=== PATIENT | male | born 1970 | race Two or more races ===

== ENCOUNTER 2020-07-17 15:04 | Emergency (ER) | payer SELFPAY ==
[2020-07-17] MEDS ORDERED: Aspirin 325 MG Tab PO ONE (15:37)
[2020-07-17 15:59] LABS: BLOOD UREA NITROGEN,BUN 13 mg/dL (7.0-18.0); CARBON DIOXIDE,CO2 23.4 mmol/L (21.0-32.0); CHLORIDE,CL 104 mmol/L (98-107); GLUCOSE RANDOM 95 mg/dL (74-106); POTASSIUM,K 3.9 mmol/L (3.5-5.1); SODIUM,NA 141 mmol/L (136-148)
--- NOTE | 2020-07-17 16:16 | CR ---
INDICATION: Chest pain, shortness of breath, fatigue TECHNIQUE: Portable upright AP view of the chest COMPARISON: None FINDINGS: The lungs are clear. There is no sizable pleural effusion or pneumothorax. The cardiomediastinal silhouette is normal. The visualized osseous structures are unremarkable. IMPRESSION: No acute intrathoracic process. Dictated by Buffy Kam MD @ Jul 17 2020 4:14PM Signed by Dr. Buffy Kam @ Jul 17 2020 4:15PM
[2020-07-17] MEDS ORDERED: Ketorolac 30 MG/ML SDV IVPUSH ONE (16:18)
--- NOTE | 2020-07-17 17:08 | EDM.PDOC ---
ED HPI GENERAL MEDICAL PROBLEM - General Chief Complaint: Chest Pain Stated Complaint: CHEST PAIN Time Seen by Provider: 07/17/20 15:21 - History of Present Illness INITIAL COMMENTS - FREE TEXT/NARRATIVE: CHIEF COMPLAINT(S): Chest pain HISTORY OF PRESENT ILLNESS: This is a 50-year-old man without any past medical history who comes to the emergency department with a chief complaint of chest pain. The patient states that for the last 8 days he has been experiencing intermittent chest pain located in the center of her chest. He states that it happens randomly. He describes the pain as pressure rated 5 out of 10. He kingsley es any diaphoresis, nausea, or vomiting. He states that it resolves on its own. He states he does have some exertional dyspnea but denies any orthopnea. He also states that he has been experiencing a cough which is nonproductive and chills. He states that he took DayQuil and took a bath and that seemed to help however it is returned. He denies any personal history of CAD or family history of early onset CAD. He denies any other symptoms. REVIEW OF SYSTEMS: Constitutional: Positive for chills. Denies fever Eyes: Denies eye pain Ears, Nose, Mouth, & Throat: Denies earache Cardiovascular: Positive for chest pain Respiratory: Positive for shortness of breath and nonproductive cough Gastrointestinal: Denies Nausea, vomiting, diarrhea, hematochezia. Genitourinary: Denies hematuria Skin:Denies a rash Neurological: Denies blurred vision Psychiatric: Denies depression PAST MEDICAL HISTORY: As per history of present illness and as reviewed below otherwise noncontributory. SURGICAL HISTORY: As per history of present illness and as reviewed below otherwise noncontributory. SOCIAL HISTORY: Denies tobacco, alcohol, or illicit substances. FAMILY HISTORY: As per history of present illness and as reviewed below otherwise noncontributory. EXAMINATION OF ORGAN SYSTEMS/BODY AREAS: Constitutional: Blood pressure is 165/66, heart rate 74, respiratory rate 18 with an oxygen saturation 96% on room air. Temperature 36.1 General: Overall well-appearing man who is in no acute distress. Psychiatric: Appropriate mood and affect. Eyes: No scleral icterus or conjunctival erythema ENMT: Moist mucous membranes. No pharyngeal erythema Cardiovascular: Regular, rate, and rythym. No gallops, murmurs, or rubs. Bilateral upper extremity pulses symmetric and intact. No peripheral edema. No JVD. Respiratory: Lungs clear to auscultation bilaterally. No wheezes, rales, or rhonchi. Gastrointestinal: Soft, non-tender, non-distended. Normoactive bowel sounds Genitourinary: No suprapubic tenderness Musculoskeletal: Normal range of motion. Skin: No lesions or abrasions. Neurological: Alert, GCS 15 MEDICAL DECISION MAKING AND COURSE IN THE ED WITH INTERPRETATION/REVIEW OF DIAG NOSTIC STUDIES: This is a 50-year-old Japanese-speaking man without any past medical history who comes to the emergency department with a 8 days of central chest pain which is atypical associated with shortness of breath and nonproductive cough. At this time given the patient's age we will undergo a cardiac work-up. We will provide the patient with aspirin and Toradol for pain relief. Will obtain labs including CBC, CMP, troponin. We will also obtain a coronavirus swab as he is having some typical symptoms of coronavirus. We will reevaluate the patient for improvement. EKG was obtained which did not reveal any acute signs of ischemia. Twelve-lead EKG interpreted by myself. Normal sinus rhythm at a rate of 69beats per minute. Normal axis. TX interval is 183ms. QRS duration is 108ms. ST segments are normal without elevations or depressions. No Q waves present. Hypertrophy not noted. There is a T wave inversion in lead III. Interpretation: Normal sinus rhythm with nonspecific T wave inversion Wells Criteria Clinical signs/symptoms of DVT: No (0) PE #1 Dx or equally likely: No (0) Heart Rate >100: No (0) Immobilization for 3 days or surgery in last month: No (0) Previously Dx PE or DVT: No (0) Hemoptysis: No (0) Malignancy w/ Tx within 6 months or palliative: No (0) Wells Score: 0 Laboratory: CBC is unremarkable. CMP is unremarkable. Coronavirus is positive. Troponin is negative The radiological images were viewed by myself along with reading the report from the radiologist. Chest x-ray does not reveal any acute cardiopulmonary process. After labs and imaging I did discuss results with the patient. I discussed the importance of self-isolation for the next 10 days. I discussed the use of Tylenol and Motrin for pain relief. He is to return to the emergency department for any new or worsening symptoms. He did express understanding was amenable to discharge at this time. DISPOSITION: The patient was discharged home in stable condition. The patient will follow up with primary care clinic in 2 to 3 days CONDITION: Fair PROCEDURES: None FINAL IMPRESSION(S)/DIAGNOSES: 1. Acute coronavirus infection Mike Chen M.D. Chest Pain Score (Numeric/FACES): 8 - Related Data Allergies Allergy/AdvReac Type Severity Reaction Status Date / Time No Known Allergies Allergy Verified 07/17/20 15:19 Home Meds: Home Meds Acetaminophen [Tylenol Extra Strength] 500 mg PO Q6H #28 tab 07/17/20 [Rx] Ibuprofen [Ibu] 400 mg PO Q6HR #28 tablet 07/17/20 [Rx] Past Medical History - Past Health History Medical/Surgical History: Denies Medical/Surgical History Social & Family History - Family History Family Medical History: No Pertinent Family History - Tobacco Use Tobacco Use Status *Q: Never Tobacco User - Caffeine Use Caffeine Use: Reports: None - Recreational Drug Use Recreational Drug Use: No ED ROS GENERAL - Review of Systems Review Of Systems: See Below ED EXAM, GENERAL - Physical Exam Exam: See Below Course - Vital Signs Last Recorded V/S: Last Vital Signs Temp 36.6 C 07/17/20 17:53 Pulse 68 07/17/20 17:53 Resp 18 07/17/20 15:05 BP 133/58 L 07/17/20 17:53 Pulse Ox 95 07/17/20 17:53 - Orders/Labs/Meds Orders: Active Orders 24 hr Category Date Time Status CORONAVIRUS COVID-19 PCR PHL Stat Lab 07/17/20 16:26 Received Labs: Laboratory Tests 07/17/20 07/17/20 07/17/20 Range/Units 15:05 15:05 16:26 WBC 6.13 (4.0-11.0) K/uL RBC 5.33 (4.50-5.90) M/uL Hgb 15.3 (13.0-17.0) g/dL Hct 44.7 (38.0-50.0) % MCV 83.9 (80.0-98.0) fL MCH 28.7 (27.0-32.0) pg MCHC 34.2 (31.0-37.0) g/dL RDW Std Deviation 38.7 (28.0-62.0) fl RDW Coeff of L[place] 13 (11.0-15.0) % Plt Count 203 (150-400) K/uL MPV 11.10 (7.40-12.00) fL Neut % (Auto) 63.6 (48.0-80.0) % Lymph % (Auto) 27.9 (16.0-40.0) % [place] % (Auto) 7.5 (0.0-15.0) % Eos % (Auto) 0.7 (0.0-7.0) % Baso % (Auto) 0.3 (0.0-1.5) % Neut # (Auto) 3.9 (1.4-5.7) K/uL Lymph # (Auto) 1.7 (0.6-2.4) K/uL [place] # (Auto) 0.5 (0.0-0.8) K/uL Eos # (Auto) 0.0 (0.0-0.7) K/uL Baso # (Auto) 0.0 (0.0-0.1) K/uL Nucleated RBC % 0.0 /100WBC Nucleated RBCs # 0 K/uL Sodium 141 (136-148) mmol/L Potassium 3.9 (3.5-5.1) mmol/L Chloride 104 (98-107) mmol/L Carbon Dioxide 23.4 (21.0-32.0) mmol/L BUN 13 (7.0-18.0) mg/dL Creatinine 0.9 (0.8-1.3) mg/dL Est Cr Clr Drug Dosing 89.54 mL/min Estimated GFR (MDRD) > 60.0 ml/min Glucose 95 (74-106) mg/dL Calcium 8.6 (8.5-10.1) mg/dL Magnesium 1.9 (1.8-2.4) mg/dL Total Bilirubin 0.3 (0.2-1.0) mg/dL AST 61 H (15-37) IU/L ALT 48 (14-63) IU/L Alkaline Phosphatase 113 (46-116) U/L Troponin I < 0.050 (0.000-0.056) ng/mL Total Protein 8.3 H (6.4-8.2) g/dL Albumin 3.6 (3.4-5.0) g/dL Globulin 4.7 H (2.6-4.0) g/dL Albumin/Globulin Ratio 0.8 L (0.9-1.6) SARS CoV-2 RNA Rapid DAVIS POSITIVE H (NEGATIVE) Meds: Medications Discontinued Medications Generic Name Dose Route Start Last Admin Trade Name Jacky PRN Reason Stop Dose Admin Aspirin 325 mg 07/17/20 15:37 07/17/20 16:13 Aspirin PO 07/17/20 15:38 325 mg ONETIME ONE Administration Ketorolac Tromethamine 15 mg 07/17/20 16:18 07/17/20 17:13 Toradol IVPUSH 07/17/20 16:19 15 mg ONETIME ONE Administration Departure - Departure Time of Disposition: 17:32 Disposition: Home, Self-Care 01 Condition: Fair Clinical Impression: COVID-19 - Discharge Information *PRESCRIPTION DRUG MONITORING PROGRAM REVIEWED*: No *COPY OF PRESCRIPTION DRUG MONITORING REPORT IN PATIENT AL: No Prescriptions: Ibuprofen [Ibu] 400 mg PO Q6HR #28 tablet Acetaminophen [Tylenol Extra Strength] 500 mg PO Q6H #28 tab Instructions: COVID-19 Frequently Asked Questions, COVID-19: How to Protect Yourself and Others - [facility] Forms: ED Department Discharge Additional Instructions: The patient is informed of any results of their evaluation and diagnostic workup and all questions are answered. They are given discharge instructions and return precautions. The patient is stable for discharge. The patient states they understand and agree with the plan and that they will return if their symptoms get worse or if they have any new concerns. The following information is given to patients seen in the emergency department who are being discharged to home. This information is to outline your options for follow-up care. We provide all patients seen in our emergency department with a follow-up referral. The need for follow-up, as well as the timing and circumstances, are variable depending upon the specifics of your emergency department visit. If you don't have a primary care physician on staff, we will provide you with a referral. We always advise you to contact your personal physician following an emergency department visit to inform them of the circumstance of the visit and for follow-up with them and/or the need for any referrals to a consulting specialist. The emergency department will also refer you to a specialist when appropriate. This referral assures that you have the opportunity for follow-up care with a specialist. All of these measure are taken in an effort to provide you with optimal care, which includes your follow-up. Under all circumstances we always encourage you to contact your private physician who remains a resource for coordinating your care. When calling for follow-up care, please make the office aware that this follow-up is from your recent emergency room visit. If for any reason you are refused follow-up, please contact the [facility] Emergency Department at and asked to speak to the emergency department charge nurse. Noonan sido evaluado de forma emergente. Le cardenas diagnosticado coronavirus. [place] tylenol e ibuprofeno para el dolor y la fiebre. Asle por s mismo oliver 10 mccray. Regrese a la anderson de emergencias si empeora la dificultad para respirar, dolor en el pecho. Shelia un seguimiento con el mdico de atencin primaria que se indica a continuacin. [facility] - Primary Care [address] [place] [id number] [place] [address] Sepsis Event Note (ED) - Evaluation Sepsis Screening Result: No Definite Risk - Focused Exam Vital Signs: Vital Signs Temp Pulse Resp BP Pulse Ox 07/17/20 17:53 36.6 C 68 133/58 L 95 07/17/20 17:07 70 127/61 95 07/17/20 16:37 71 143/67 H 95 07/17/20 15:52 73 140/55 L 95 07/17/20 15:05 36.1 C 74 18 165/66 H 96 - My Orders Last 24 Hours: My Active Orders 07/17/20 16:26 CORONAVIRUS COVID-19 PCR PHL Stat - Assessment/Plan Last 24 Hours: My Active Orders 07/17/20 16:26 CORONAVIRUS COVID-19 PCR PHL Stat
== END 2020-07-17 17:53 | disposition home or self-care (01) ==
LOC: MW.ED 15:04
DX: U07.1 COVID-19 (principal)
CPT/HCPCS: 36415; 71045; 80053; 83735; 84484; 85025; 87635; 93005; 96374; 99285; A9270; J1885; 93010; 99283; U0002

== ENCOUNTER 2021-06-02 07:49 | Emergency (ER) | payer SELFPAY ==
--- NOTE | 2021-06-02 08:13 | PCM.EKG ---
#1 Interpretation EKG Date: 06/02/21 Time: 08:03 Rhythm: NSR Rate (Beats/Min): 98 [place]: Normal P-Wave: Present QRS: Normal ST-T: Normal QT: Normal Comparison: No Change (07/17/20) EKG Interpretation Comments: Sinus Rhythm
[2021-06-02 08:57] LABS: BLOOD UREA NITROGEN,BUN 12 mg/dL (7.0-18.0); CARBON DIOXIDE,CO2 27.7 mmol/L (21.0-32.0); CHLORIDE,CL 102 mmol/L (98-107); GLUCOSE RANDOM 213 mg/dL (74-106); POTASSIUM,K 3.6 mmol/L (3.5-5.1); SODIUM,NA 139 mmol/L (136-148)
--- NOTE | 2021-06-02 09:02 | CR ---
INDICATION: Cough and chest pain. TECHNIQUE: Chest 1 views. COMPARISON: 07/17/2020. FINDINGS: Cardiovascular and mediastinum: Cardiomegaly with particular enlargement of the left heart. Pulmonary vasculature is normal. Lungs and pleural spaces: Lungs are clear. No sign of infiltrate or mass. No sign of pleural effusion. No pneumothorax. Bones and soft tissues: No significant findings. IMPRESSION: Stable cardiomegaly without further evidence of heart failure or other acute abnormality. Dictated by Zion Bourgeois MD @ 06/02/2021 9:02:14 AM (Electronically Signed)
[2021-06-02] MEDS ORDERED: Aspirin 81 MG Tab.Chew PO ONE (09:13)
--- NOTE | 2021-06-02 09:14 | EDM.PDOC ---
ED HPI GENERAL MEDICAL PROBLEM - General Chief Complaint: Chest Pain Stated Complaint: VOMITTING, CHEST PAIN Time Seen by Provider: 06/02/21 08:00 - History of Present Illness INITIAL COMMENTS - FREE TEXT/NARRATIVE: CHIEF COMPLAINT(S): Chest pain HISTORY OF PRESENT ILLNESS: This is a 50-year-old man without any reported past medical history who comes to the emergency department with a chief complaint of chest pain. The patient states that he has been experiencing intermittent chest pain located on the left side of his chest which he describes as pressure-like. He denies any actual pain. He denies any exertional pressure or pain. He states that it mainly happens when he is sleeping at night. He denies any recent travel, recent surgery or prior history of DVT or PE. He states that he did have Covid in September but has been vaccinated since that time. He states that this does feel similar to that time. He denies any sore throat, runny nose, congestion, abdominal pain but states that he does have a cough which is productive of clear sputum. He denies any other symptoms. REVIEW OF SYSTEMS: Constitutional: Denies fever, chills. Eyes: Denies eye pain Ears, Nose, Mouth, & Throat: Denies earache Cardiovascular: Positive for chest pressure. Denies syncope, exertional chest pain, lower extremity edema Respiratory: Positive for productive cough. Denies shortness of breath, orthopnea Gastrointestinal: Denies Nausea, vomiting, diarrhea, hematochezia. Genitourinary: Denies hematuria Skin:Denies a rash MSK: Denies joint pain Neurological: Denies blurred vision Psychiatric: Denies depression PAST MEDICAL HISTORY: As per history of present illness and as reviewed below otherwise noncontributory. SURGICAL HISTORY: As per history of present illness and as reviewed below otherwise noncontributory. SOCIAL HISTORY: As per history of present illness and as reviewed below otherwise noncontributory. FAMILY HISTORY: As per history of present illness and as reviewed below otherwise noncontributory. EXAMINATION OF ORGAN SYSTEMS/BODY AREAS: Constitutional: Blood pressure 154/79, heart rate 100, respiratory rate 16 with an oxygen saturation of 96% on room air. Temperature 35.9 temporally. General: Well-appearing man who is in no acute distress Psychiatric: Appropriate mood and affect. Eyes: No scleral icterus or conjunctival erythema ENMT: Moist mucous membranes. No pharyngeal erythema Cardiovascular: Regular, rate, and rhythm. No gallops, murmurs, or rubs. Bilateral upper extremity pulses symmetric and intact. No peripheral edema. No JVD. Respiratory: Lungs clear to auscultation bilaterally. No wheezes, rales, or rhonchi. Gastrointestinal: Soft, non-tender, non-distended. Normoactive bowel sounds Genitourinary: No suprapubic tenderness Musculoskeletal: Normal range of motion. Skin: No lesions or abrasions. Neurological: Alert, GCS 15 MEDICAL DECISION MAKING AND COURSE IN THE ED WITH INTERPRETATION/REVIEW OF DIAGNOSTIC STUDIES: This is a 50-year-old and without any significant past medical history who comes to the emergency department with acute intermittent chest pressure associated with productive cough. The patient has no overt signs of edema on examination is lying comfortably in the stretcher. Differential at this time includes ACS, pneumonia, pulmonary embolism. Will obtain a cardiac work-up. EKG was obtained which did not reveal any acute signs of ischemia. Patient was placed on cardiac monitoring and pulse oximetry. radiation monitor at this time did reveal sinus rhythm and pulse oximetry with good waveform was 96% on room air. Patient is tachycardic therefore we will obtain a CT angiogram of the chest to evaluate for pulmonary embolism. We will provide the patient with 324 mg of p.o. aspirin. Will obtain Covid and influenza swabs. Heart Score History: Slightly or Non-Suspicious (0) ECG: Normal (0) Age: 45-64 (1) Risk Factors: No known risk factors (0) Initial Troponin: </= normal limit (0) Total Score:1 Laboratory: CBC is unremarkable. BMP is unremarkable. Glucose is elevated at 213. Calcium is normal. Magnesium is normal. Troponin is negative. Covid is negative. The radiological images were viewed by myself along with reading the report from the radiologist. Chest x-ray does not reveal any acute cardiopulmonary process other than stable cardiomegaly. CT angiogram of the chest does not reveal any evidence of acute pulmonary embolism. Reevaluation the patient reported symptomatic improvement. At this time I recommended famotidine nightly and to follow-up with primary care physician to reevaluate the need for possible outpatient cardiac work-up. He was given strict return precautions. The patient was amenable to discharge and had no further questions DISPOSITION: The patient was discharged home in stable condition. The patient will follow up with primary care physician in 3 to 5 days CONDITION: Fair PROCEDURES: Cardiac monitoring interpretation, pulse oximetry interpretation FINAL IMPRESSION(S)/DIAGNOSES: 1. Acute chest pain Mike Chen M.D. Chest Pain Score (Numeric/FACES): 4 - Related Data Allergies Allergy/AdvReac Type Severity Reaction Status Date / Time No Known Allergies Allergy Verified 06/02/21 08:28 Home Meds: Home Meds Acetaminophen [Tylenol Extra Strength] 500 mg PO Q6H #28 tab 07/17/20 [Rx] Ibuprofen [Ibu] 400 mg PO Q6HR #28 tablet 07/17/20 [Rx] Famotidine 40 mg PO DAILY #14 tablet 06/02/21 [Rx] Past Medical History - Past Health History Medical/Surgical History: Denies Medical/Surgical History - Infectious Disease History Infectious Disease History: Reports: Chicken Pox, Novel Coronavirus Social & Family History - Family History Family Medical History: No Pertinent Family History - Tobacco Use Tobacco Use Status *Q: Never Tobacco User Second Hand Smoke Exposure: No - Caffeine Use Caffeine Use: Reports: Coffee - Recreational Drug Use Recreational Drug Use: No ED ROS GENERAL - Review of Systems Review Of Systems: See Below ED EXAM, GENERAL - Physical Exam Exam: See Below Course - Vital Signs Last Recorded V/S: Last Vital Signs Temp 35.9 C L 06/02/21 08:07 Pulse 88 06/02/21 11:23 Resp 16 06/02/21 11:23 BP 132/66 06/02/21 11:23 Pulse Ox 95 06/02/21 11:23 - Orders/Labs/Meds Labs: Laboratory Tests 06/02/21 06/02/21 06/02/21 Range/Units 08:15 08:17 08:18 WBC 8.39 (4.0-11.0) K/uL RBC 5.43 (4.50-5.90) M/uL Hgb 15.4 (13.0-17.0) g/dL Hct 44.4 (38.0-50.0) % MCV 81.8 (80.0-98.0) fL MCH 28.4 (27.0-32.0) pg MCHC 34.7 (31.0-37.0) g/dL RDW Std Deviation 38.2 (28.0-62.0) fl RDW Coeff of Lokesh 13 (11.0-15.0) % Plt Count 149 L (150-400) K/uL MPV 12.00 (7.40-12.00) fL Neut % (Auto) 55.4 (48.0-80.0) % Lymph % (Auto) 37.7 (16.0-40.0) % Mcdonough % (Auto) 5.7 (0.0-15.0) % Eos % (Auto) 1.0 (0.0-7.0) % Baso % (Auto) 0.2 (0.0-1.5) % Neut # (Auto) 4.7 (1.4-5.7) K/uL Lymph # (Auto) 3.2 H (0.6-2.4) K/uL Mcdonough # (Auto) 0.5 (0.0-0.8) K/uL Eos # (Auto) 0.1 (0.0-0.7) K/uL Baso # (Auto) 0.0 (0.0-0.1) K/uL Sodium (136-148) mmol/L Potassium (3.5-5.1) mmol/L Chloride (98-107) mmol/L Carbon Dioxide (21.0-32.0) mmol/L BUN (7.0-18.0) mg/dL Creatinine (0.8-1.3) mg/dL Est Cr Clr Drug Dosing Estimated GFR (MDRD) ml/min Glucose (74-106) mg/dL Hemoglobin A1c 5.9 (4.5 - 6.2) % Calcium (8.5-10.1) mg/dL Magnesium (1.8-2.4) mg/dL Troponin I (0.000-0.056) ng/mL SARS-CoV-2 RNA (DAVIS) NEGATIVE (NEGATIVE) 06/02/21 Range/Units 08:18 WBC (4.0-11.0) K/uL RBC (4.50-5.90) M/uL Hgb (13.0-17.0) g/dL Hct (38.0-50.0) % MCV (80.0-98.0) fL MCH (27.0-32.0) pg MCHC (31.0-37.0) g/dL RDW Std Deviation (28.0-62.0) fl RDW Coeff of Lokesh (11.0-15.0) % Plt Count (150-400) K/uL MPV (7.40-12.00) fL Neut % (Auto) (48.0-80.0) % Lymph % (Auto) (16.0-40.0) % Mcdonough % (Auto) (0.0-15.0) % Eos % (Auto) (0.0-7.0) % Baso % (Auto) (0.0-1.5) % Neut # (Auto) (1.4-5.7) K/uL Lymph # (Auto) (0.6-2.4) K/uL Mcdonough # (Auto) (0.0-0.8) K/uL Eos # (Auto) (0.0-0.7) K/uL Baso # (Auto) (0.0-0.1) K/uL Sodium 139 (136-148) mmol/L Potassium 3.6 (3.5-5.1) mmol/L Chloride 102 (98-107) mmol/L Carbon Dioxide 27.7 (21.0-32.0) mmol/L BUN 12 (7.0-18.0) mg/dL Creatinine 1.0 (0.8-1.3) mg/dL Est Cr Clr Drug Dosing TNP Estimated GFR (MDRD) > 60.0 ml/min Glucose 213 H (74-106) mg/dL Hemoglobin A1c (4.5 - 6.2) % Calcium 8.3 L (8.5-10.1) mg/dL Magnesium 1.8 (1.8-2.4) mg/dL Troponin I < 0.050 (0.000-0.056) ng/mL SARS-CoV-2 RNA (DAVIS) (NEGATIVE) Meds: Medications Discontinued Medications Generic Name Dose Route Start Last Admin Trade Name Freq PRN Reason Stop Dose Admin Aspirin 324 mg 06/02/21 09:13 06/02/21 09:37 Aspirin 81 Mg Tab.Chew PO 06/02/21 09:14 324 mg ONETIME ONE Administration Iopamidol 100 ml 06/02/21 09:50 06/02/21 09:50 Iopamidol 755 Mg/Ml 500 Ml Multipack Bottle IVPUSH 06/02/21 09:51 100 ml ONETIME STA Administration Departure - Departure Time of Disposition: 11:18 Disposition: Home, Self-Care 01 Condition: Fair Clinical Impression: Atypical chest pain - Discharge Information *PRESCRIPTION DRUG MONITORING PROGRAM REVIEWED*: No *COPY OF PRESCRIPTION DRUG MONITORING REPORT IN PATIENT AL: No Prescriptions: Famotidine 40 mg PO DAILY #14 tablet Instructions: Nonspecific Chest Pain, Adult, [id number] Referrals: PCP,None [Primary Care Provider] - Forms: ED Department Discharge Additional Instructions: Jumana fuiste evaluado de forma emergente. En john momento, todo mcginnis trabajo fue negativo. La radiografa de trax y la tomografa computarizada fueron normales y mcginnis Covid fue negativo. En john momento, le recomiendo que use famotidine todas las noches oliver las prximas 2 semanas. Le recomiendo que otilia un seguimiento con mcginnis mdico de atencin primaria dentro de 1 a 3 mccray para chichi reevaluacin y chichi posible derivacin para un examen cardaco ambulatorio. Si tiene un dolor de pecho que empeora, falta de aireadrianne me gustara que regresara al departamento de emergencias. [facility] [address] [place] [id number] [address] Se informa al paciente de los resultados de mcginnsi evaluacin y diagnstico y se responden todas las preguntas. Se les derrick instrucciones de dwight y precauciones de devolucin. El paciente est estable para el dwight. El paciente afirma que entiende y est de acuerdo con el plan y que volver si jaylyn sntomas empeoran o si tiene alguna inquietud nueva. La siguiente informacin se pillo a los pacientes atendidos en el departamento de emergencias que estn siendo dados de dwight a mcginnis hogar. Esta informacin es para describir jaylyn opciones para la atencin de seguimiento. Proporcionamos a todos los pacientes atendidos en nuestro departamento de emergencias chichi derivacin de seguimiento. La necesidad de seguimiento, as tang el momento y las circunstancias, varan segn los detalles de mcginnis visita al departamento de emergencias. Si no tiene un mdico de atencin primaria en el personal, le proporcionaremos chichi referencia. Siempre le recomendamos que se ponga en contacto con mcginnis mdico personal despus de chichi visita al servicio de urgencias para informarle de las circunstancias de la visita y para realizar un seguimiento con l y / o la necesidad de cualquier derivacin a un especialista consultor. El departamento de emergencias tambin lo derivar a un especialista cuando sea apropiado. Esta remisin le asegura que tiene la oportunidad de recibir atencin de seguimiento con un especialista. Todas estas medidas se thao en un esfuerzo por brindarle chichi atencin ptima, que incluye mcginnis seguimiento. En todas las circunstancias, siempre lo alentamos a que se comunique con mcginnis mdi co privado, quien sigue siendo un recurso para coordinar mcginnis atencin. Cuando llame para recibir atencin de seguimiento, informe al consultorio que john seguimiento es de mcginnis visita reciente a la anderson de emergencias. Si por alguna razn se le niega el seguimiento, comunquese con el Departamento [facility] y solicite hablar con la enfermera a cargo del departamento de emergencias. Sepsis Event Note (ED) - Evaluation Sepsis Screening Result: No Definite Risk
[2021-06-02] MEDS ORDERED: Iopamidol 755 MG/ML 500 ML Multipack Bottle IVPUSH STA (09:50)
[2021-06-02 10:16] LABS: HEMOGLOBIN A1C 5.9 %
--- NOTE | 2021-06-02 10:22 | CT ---
INDICATION: Chest pain and hypoxia. TECHNIQUE: CT chest PE was acquired with 100 cc Isovue 370 IV contrast. COMPARISON: None. FINDINGS: Heart and vasculature: Contrast opacification of the pulmonary arterial tree is suboptimal. No obvious large or central pulmonary embolism. Heart size is normal. Thoracic aorta and pulmonary artery are normal in caliber. Lungs and pleural: No suspicious nodules or infiltrates. No pleural effusions, pleural thickening, or pneumothorax. Lymph nodes/mediastinum: No mediastinal, hilar, or axillary adenopathy. Chest wall: No masses. Upper abdomen: No acute or significant findings. Bones: Unremarkable for age. IMPRESSION: 1. No sign of large or central pulmonary embolism. However, assessment for pulmonary embolism is significantly degraded by a missed contrast bolus. Consider repeating CT angiogram if there is ongoing concern for pulmonary embolism. 2. Lungs and pleural spaces are clear. 3. No specific finding to explain chest pain or hypoxia. Please note that all CT scans at this facility use dose modulation, iterative reconstruction, and/or weight-based dosing when appropriate to reduce radiation dose to as low as reasonably achievable. Dictated by Zion Bourgeois MD @ 06/02/2021 10:21:29 AM (Electronically Signed)
== END 2021-06-02 11:28 | disposition home or self-care (01) ==
LOC: MW.ED 07:49
DX: R07.89 Other chest pain (principal); Z20.822 Contact with and (suspected) exposure to COVID-19
CPT/HCPCS: 36415; 71045; 71275; 80048; 83036; 83735; 84484; 85025; 87635; 87804; 93005; 99285; A9270; Q9967; U0002

== ENCOUNTER 2022-11-11 15:27 | Emergency (ER) | payer SELFPAY ==
[2022-11-11 16:34] LABS: CARBON DIOXIDE,CO2 26.6 mmol/L (21.0-32.0); POTASSIUM,K 4.3 mmol/L (3.5-5.1)
== END 2022-11-11 17:04 | disposition home or self-care (01) ==
LOC: MW.ED 15:27
DX: R00.2 Palpitations (principal); Z86.16 Personal history of COVID-19
CPT/HCPCS: 36415; 71045; 71045-26; 80053; 84443; 84484; 85025; 93005; 99285